=== PATIENT | female | born 1980 | race American Indian/Alaskan Native ===

== ENCOUNTER 2016-10-14 19:45 | Emergency (ER) | payer SELFPAY ==
[2016-10-15] MEDS ORDERED: CATAPRES ONE (03:48)
[2016-10-15] MEDS ORDERED: CATAPRES PO ONE (03:56)
--- NOTE | 2016-10-15 07:58 | Emergency Department Report ---
HPI - General Chief Complaint: Headache Time Seen by Provider: 10/15/16 07:39 - HPI HPI: This is a 36 year-old female presents to the emergency department with complaint of some vaginal bleeding, low back pain and expulsion of her Mirena IUD. The patient wears the Mirena long-term but recently had a new one placed. She still gets monthly menstrual cycles but says that she had a larger amount since early this morning including clots and noticed that her Mirena came out. She also complains of a mild headache. She denies any vision change, slurred speech or any neurological deficits. She has a history of hypertension and does present with elevated blood pressure but is not on any medications. She does not have a primary care physician or [facility] [employer] [facility] [facility] at this time. She is to take HCTZ and amlodipine but has been out for at least 2 months. No recent travel or sick contacts at home. ED Past Medical Hx - Past Medical History Hx Hypertension: Yes - Surgical History Past Surgical History?: No - Social History Smoking Status: Never Smoker - Medications Home Medications: Home Medications Medication Instructions Recorded Confirmed Last Taken Type Hydrochlorothiazide [Hctz] 12.5 mg PO QDAY #30 capsule 10/15/16 Unknown Rx amLODIPine [Norvasc] 5 mg PO DAILY #30 tab 10/15/16 Unknown Rx ED Review of Systems ROS: Stated complaint: CONTROL REPLACED Other details as noted in HPI Comment: All other systems reviewed and negative Constitutional: denies: chills, fever Eyes: denies: eye pain, eye discharge, vision change ENT: denies: ear pain, throat pain Respiratory: denies: cough, shortness of breath, wheezing Cardiovascular: denies: chest pain, palpitations Gastrointestinal: denies: abdominal pain, nausea, diarrhea Genitourinary: other (vaginal bleeding). denies: dysuria, discharge Musculoskeletal: back pain. denies: arthralgia Skin: denies: rash, lesions Neurological: headache. denies: numbness, paresthesias Physical Exam - Physical Exam Vital Signs: Vital Signs 10/14/16 10/15/16 10/15/16 20:01 03:33 03:58 Temperature 98 F 98.2 F Pulse Rate 104 H 86 83 Respiratory 18 18 Rate Blood Pressure 194/116 193/106 193/106 O2 Sat by Pulse 97 97 Oximetry Physical Exam: GENERAL: The patient is well-developed well-nourished. HENT: Normocephalic. Atraumatic. Patient has moist mucous membranes. EYES: Extraocular motions are intact. Pupils equal reactive to light bilaterally. NECK: Supple. Trachea is midline. CHEST/LUNGS: Clear to auscultation. There is no respiratory distress noted. HEART/CARDIOVASCULAR: Regular. There is no tachycardia. There is no gallop rub or murmur. ABDOMEN: Abdomen is soft, nontender. Patient has normal bowel sounds. There is no abdominal distention. SKIN: Skin is warm and dry. NEURO: The patient is awake, alert, and oriented. The patient is cooperative. The patient has no focal neurologic deficits. The patient has normal speech and gait. MUSCULOSKELETAL: There is no tenderness or deformity. There is no limitation range of motion. There is no evidence of acute injury. ED Course Vital Signs 10/14/16 10/15/16 10/15/16 20:01 03:33 03:58 Temperature 98 F 98.2 F Pulse Rate 104 H 86 83 Respiratory 18 18 Rate Blood Pressure 194/116 193/106 193/106 O2 Sat by Pulse 97 97 Oximetry ED Medical Decision Making - Lab Data Result diagrams: 10/15/16 08:05 10/15/16 08:05 - Medical Decision Making 36-year-old female presents with some vaginal bleeding that pushed out her Mirena IUP. She denies any significant abdominal or pelvic discomfort. She had some lower back pain but that has since resolved. She also does not have any problems with bowel or bladder, numbness or paresthesias or any neurological deficits and there is a very low suspicion for any of the emergent back condition such as cauda equina, epidural abscess or cord compression syndrome. The patient says that the bleeding has slowed up and almost resolved. She is not . Without any significant discomfort or abnormal labs, I do not feel that imaging is necessary at this time. She has an [facility] through [facility] that she can follow-up within the next few days. She will return to the ER with any worsening of her symptoms or any acute distress. Vital signs stable throughout course. - Differential Diagnosis , vaginal laceration, fibroids Critical Care Time: No Critical care attestation.: If time is entered above; I have spent that time in minutes in the direct care of this critically ill patient, excluding procedure time. ED Disposition Clinical Impression: Dysfunctional uterine bleeding Hypertension Qualifiers: Hypertension type: essential hypertension Qualified Code(s): I10 - Essential ( primary) hypertension Disposition: TO HOME OR SELFCARE Is pt being admited?: No Condition: Stable Instructions: Dysfunctional Uterine Bleeding (ED), Hypertension (ED) Additional Instructions: Please call today to make an appointment with your [facility] [employer] [facility] [facility] in the next 1-2 days without fail regarding the Mirena IUP falling out and the vaginal bleeding. Return to the emergency Department with any worsening of her symptoms or any acute distress. Try and stay away from foods that are high in salt and caffeinated products to assist with your blood pressure. Keep a blood pressure log. Prescriptions: amLODIPine [Norvasc] 5 mg PO DAILY #30 tab Hydrochlorothiazide [Hctz] 12.5 mg PO QDAY #30 capsule Referrals: PRIMARY MD ZAKIYA [Primary Care Provider] - 3-5 Days [facility] [Outside] - 3-5 Days SIGIFREDO ROBERTSON MD [Staff Physician] - 3-5 Days Forms: Work/School Release Form(ED) Time of Disposition: 09:40
[2016-10-15 08:17] LABS: Basophils % (Auto) 0.5 % (0.0-1.8); Eosinophils % (Auto) 0.7 % (0.0-4.3); Hemoglobin 11.6 gm/dl (10.1-14.3); Mean Corpuscular HGB Conc 32 % (30-34); Mean Corpuscular Volume 81 fl (79-97); Platelet Count 342 K/mm3 (140-440); Red Blood Count 4.57 M/mm3 (3.65-5.03); Red Cell Distribution Width 18.4 % (13.2-15.2); White Blood Count 7.4 K/mm3 (4.5-11.0)
[2016-10-15 08:21] VITALS: BP 123/71
[2016-10-15 08:21] LABS: Mean Corpuscular Hemoglobin 26 pg (28-32)
[2016-10-15 08:33] LABS: Anion Gap 17 mmol/L; BUN/Creatinine Ratio 18.33; Blood Urea Nitrogen 11 mg/dL (7-17); Calcium 8.9 mg/dL (8.4-10.2); Carbon Dioxide 23 mmol/L (22-30); Chloride 104.8 mmol/L (98-107); Glucose 124 mg/dL (65-100); Sodium 141 mmol/L (137-145)
== END 2016-10-15 09:53 | disposition home or self-care (01) ==
LOC: ED 19:45
DX: N93.8 Other specified abnormal uterine and vaginal bleeding (principal); I10 Essential (primary) hypertension
CPT/HCPCS: 36415; 80048; 84703; 85025